=== PATIENT | female | born 1935 | race Caucasian/White ===

== ENCOUNTER 2021-07-13 08:16 | Outpatient (CLI) | payer MEDICARE, BC ==
[~2021-07-13] VITALS: Ht 154.9 cm; Wt 74.7 kg
[~2021-07-13 08:16] MED LIST: ATOR10TA87 PO; CLON0.1T PO; COU3T PO; ESOM40CA49 PO; GABA-532 PO; HYDR-4353 PO; METO-477 PO; PER5325T PO; SUCR1TAB34 PO; VALS1TAB81 PO; WARF6TAB49 PO
[2021-07-13] MEDS ORDERED: metoprolol tartrate 1mg/ml inj IV PRN (09:40)
[2021-07-13] MEDS ORDERED: aminophylline 500mg/20ml vial IV PRN (09:40)
[2021-07-13] MEDS ORDERED: regadenoson 0.4mg/5ml syringe IV PRN (09:40)
[2021-07-13] MEDS ORDERED: nitroGLYCERIN 0.4mg SUBLingual tab SL PRN (09:40)
[2021-07-13] MEDS ORDERED: PANT-47 PO (09:57)
[2021-07-13] MEDS ORDERED: WARF-55 PO (10:00)
[2021-07-13] MEDS ORDERED: WARF7.5T48 PO (10:03)
[2021-07-13] MEDS ORDERED: DOCU100C40 PO (10:07)
[2021-07-13 10:08] VITALS: BP 182/78
[2021-07-13 10:12] VITALS: BP 154/64
[2021-07-13 10:13] VITALS: BP 126/61
[2021-07-13 10:14] VITALS: BP 144/86
[2021-07-13 10:15] VITALS: BP 148/65
[2021-07-13 10:16] VITALS: BP 160/78
== END 2021-07-13 23:59 | disposition home or self-care (01) ==
LOC: RAD 08:16
PROVIDERS: ATTEND Internal Medicine Cardiovascular Disease
DX: Z01.810 Encounter for preprocedural cardiovascular examination (principal); I50.9 Heart failure, unspecified
CPT/HCPCS: 78451; 93017; A9500; J2785